=== PATIENT | female | born 1950 | race Caucasian/White ===

== ENCOUNTER 2017-09-19 08:40 | Day surgery (SDC) | payer MEDICARE, BC ==
[~2017-09-19 08:40] MED LIST: Lactated Ringers 1,000 ML IV SCH; Midazolam 1 MG/ML 2 ML SDV ONE; Propofol 200 MG/20 ML SDV ONE; Sodium Chloride 0.9% 10 ML Syringe FLUSH PRN; Sodium Chloride 0.9% 2.5 ML Syringe FLUSH PRN; fentaNYL 100 MCG/2 ML SDV ONE
--- NOTE | 2017-09-19 09:26 | PCM.PREANE ---
Preanesthetic Assessment - Anesthesia/Transfusion/Family Hx Anesthesia History: Prior Anesthesia Reaction Other Type of Anesthesia Reaction Comment: motion sickness feeling after hysterectomy Family History of Anesthesia Reaction: No Transfusion History: No Prior Transfusion(s) Intubation History: Unknown - Review of Systems General: No Symptoms Pulmonary: No Symptoms Cardiovascular: No Symptoms Gastrointestinal: No Symptoms, Other (color guard test positive) Neurological: No Symptoms Other: Reports: None - Physical Assessment Height: 1.6 m Weight: 75.296 kg ASA Class: 2 Mental Status: Alert & Oriented x3 Airway Class: Mallampati = 2 Dentition: Reports: Normal Dentition Thyro-Mental Finger Breadths: 3 Mouth Opening Finger Breadths: 2 ROM/Head Extension: Full Lungs: Clear to Auscultation, Normal Respiratory Effort Cardiovascular: Regular Rate, Regular Rhythm - Allergies Allergies/Adverse Reactions: Allergies Allergy/AdvReac Type Severity Reaction Status Date / Time No Known Allergies Allergy Verified 09/16/17 11:17 - Blood Blood Available: No - Anesthesia Plan Pre-Op Medication Ordered: None - Acknowledgements Anesthesia Type Planned: MAC Pt an Appropriate Candidate for the Planned Anesthesia: Yes Alternatives and Risks of Anesthesia Discussed w Pt/Guardian: Yes Pt/Guardian Understands and Agrees with Anesthesia Plan: Yes PreAnesthesia Questionnaire HEENT History: Reports: Allergic Rhinitis, Cataract Cardiovascular History: Reports: Blood Clots/VTE/DVT Other Cardiovascular History: had DVT in left leg during first (1970) , 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: Musculoskeletal History: Reports: Other (See Below) Other Musculoskeletal History: osteopenia Neurological History: Reports: Migraines - Past Surgical History HEENT Surgical History: Reports: Cataract Surgery GI Surgical History: Reports: Appendectomy Female Surgical History: Reports: Hysterectomy, Salpingo-Oophorectomy - SUBSTANCE USE Smoking Status *Q: Former Smoker Recreational Drug Use History: No - HOME MEDS Home Medications: Home Meds Alendronate Sodium 70 mg PO WEEKLY 09/16/17 [History] Calcium Citrate/Vitamin D3 [Calcium Citrate - Vit D Caplet] 1 cap PO BID [History] Fluticasone Propionate [Flonase Allergy Relief] 1 - 2 spray NASBOTH DAILY [History] - CURRENT (IN HOUSE) MEDS Current Meds: Current Medications Lactated Ringer's (Ringers, Lactated) 1,000 mls @ 125 mls/hr IV ASDIRECTED IRVIN Sodium Chloride (Saline Flush) 10 ml FLUSH ASDIRECTED PRN PRN Reason: Keep Vein Open Sodium Chloride (Saline Flush) 2.5 ml FLUSH ASDIRECTED PRN PRN Reason: Keep Vein Open Sodium Chloride (Saline Flush) 10 ml FLUSH ASDIRECTED PRN PRN Reason: Keep Vein Open Sodium Chloride (Saline Flush) 2.5 ml FLUSH ASDIRECTED PRN PRN Reason: Keep Vein Open Discontinued Medications Fentanyl (Sublimaze) Confirm Administered Dose 100 mcg .ROUTE .STK-MED ONE Stop: 09/19/17 08:07 Midazolam HCl (Versed 1 Mg/Ml) Confirm Administered Dose 2 mg .ROUTE .STK-MED ONE Stop: 09/19/17 08:07 Propofol (Diprivan 20 Ml) Confirm Administered Dose 200 mg .ROUTE .STK-MED ONE Stop: 09/19/17 08:07
[2017-09-19] MEDS ORDERED: Glycopyrrolate 0.2 MG/ML SDV ONE (09:43)
[2017-09-19] MEDS ORDERED: Propofol 200 MG/20 ML SDV ONE (10:00)
--- NOTE | 2017-09-19 11:08 | PCM.OPNOTE ---
- General Post-Op/Procedure Note Date of Surgery/Procedure: 09/19/17 Operative Procedure(s): Diagnostic colonoscopy Findings: Large irregular mass in proximal ascending colon and hepatic flexure. Transverse (x1), descending (x1), sigmoid (x 3) polyp Pre Op Diagnosis: Positive cologuard test Post-Op Diagnosis: Ascending colon mass, hepatic flexure mass, transverse colon polyp, descending colon polyp, sigmoid colon polyp x 3 Anesthesia Technique: [facility] [place] Primary Surgeon: Madeline Jason Condition: Good Free Text/Narrative:: Intake & Output 09/18/17 09/19/17 09/19/17 22:59 06:59 14:59 Intake Total 1000 Balance 1000
--- NOTE | 2017-09-19 11:31 | PCM48HPAN ---
Post Anesthesia Note - EVALUATION WITHIN 48HRS OF ANESTHETIC Vital Signs in Normal Range: Yes Patient Participated in Evaluation: Yes Respiratory Function Stable: Yes Airway Patent: Yes Cardiovascular Function Stable: Yes Hydration Status Stable: Yes Pain Control Satisfactory: Yes Nausea and Vomiting Control Satisfactory: Yes Mental Status Recovered: Yes Resp Rate: 15 - COMMENTS/OBSERVATIONS Free Text/Narrative:: no anesthesia problems
--- NOTE | 2017-09-19 20:06 | OR ---
SURGEON: HERNANDEZ DAVIS MD DATE OF PROCEDURE: 09/19/2017 PREOPERATIVE DIAGNOSIS: Positive Cologuard test. POSTOPERATIVE DIAGNOSES: 1. Grade 2 hemorrhoids. 2. Diverticulosis. 3. Ascending colon mass. 4. Hepatic flexure mass. 5. Transverse colon polyp. 6. Descending colon polyp. 7. Sigmoid colon polyp x3. PROCEDURE PERFORMED: Diagnostic colonoscopy. ANESTHESIA: MAC. INSTRUMENT USED: Olympus colonoscope. EXTENT OF EXAM: To the cecum. PREPARATION: Good. LIMITATIONS: None. INDICATION FOR EXAMINATION: The patient is a 67-year-old female, who presents to my clinic with positive Cologuard test. We discussed the need for diagnostic colonoscopy. We discussed the procedure, expected perioperative course, and risks including bleeding, infection, or damage to surrounding structures including perforation. The patient verbalized understanding and wishes to proceed. PROCEDURE IN DETAIL: The patient was brought to the endoscopy suite and placed in a left lateral decubitus position. A time-out was completed verifying the patient's name, age, date of , allergies, and procedure to be performed. Monitored anesthesia care was induced and continuous oxygen was provided via nasal cannula throughout the procedure. After adequate sedation was achieved, a digital rectal exam was performed. This exam revealed reducible enlarged hemorrhoids consistent with grade 3 hemorrhoids. A well lubricated colonoscope was inserted in the rectum and advanced under direct visualization to the level of the cecum. I had some difficulty, given that I encountered a large mass at the hepatic flexure of the colon. It encompassed about half of the circumference of the colon at this spot. It made it somewhat difficult for me to make the turn to drop down in the cecum, however, I was able to do so. The cecum was identified by both visual and anatomic landmarks. A photograph was taken of the cecal cap. I was unable to retroflex the scope, given some looping of my scope more proximally. The scope was then fully withdrawn while examining the color, texture, anatomy, and integrity of the mucosa from the cecum to the anal canal. Just above the cecal cap, the patient was noted to have another irregular appearing mass that seemed to encompass 1/3 to half of the lumen size. Photograph was taken. Multiple biopsies were taken of this mass. The scope was then brought up to the hepatic flexure. Multiple biopsies were taken of the hepatic flexure mass, which had a similar appearance to the mass in the ascending colon, but was larger. I injected some mucosal ink along the mass during any further scopes for identification later on. In the proximal transverse colon, the patient was found to have a 2 to 3 mm polyp. This was removed using a cold biopsy forceps. I found similar appearing polyps in the proximal descending colon and three of them scattered along the sigmoid colon. These were all removed in a similar fashion and sent labeled according to location. The scope was then brought into the rectum and retroflexed to allow visualization of the anal canal opening. This appeared normal and a photograph was taken. The patient was noted to have some diverticulosis within the sigmoid colon as well. The scope was then removed from the patient. The cecum to anus time was greater than 20 minutes. The patient was transferred to PACU in stable condition. ENDOSCOPIC DIAGNOSES: 1. Grade 2 hemorrhoids. 2. Diverticulosis. 3. Ascending colon mass. 4. Hepatic flexure mass. 5. Transverse colon polyp. 6. Descending colon polyp. 7. Sigmoid colon polyp x3. RECOMMENDATIONS: I visited with the patient and her after the procedure. I showed them pictures of the masses and explained to them that this is concerning for possible malignancy. A CBC, CMP, and CEA were all drawn and found to be within normal limits. I will call the patient with the results of her biopsy and we will make further decisions regarding treatment from there. THOM BRANDON /[id number]
== END 2017-09-19 11:15 | disposition home or self-care (01) ==
LOC: MW.SDS 08:40
PROVIDERS: ATTEND Surgery
DX: R19.5 Other fecal abnormalities (principal); K64.1 Second degree hemorrhoids; K57.30 Diverticulosis of large intestine without perforation or abscess without bleeding; D12.0 Benign neoplasm of cecum; D12.3 Benign neoplasm of transverse colon; D12.4 Benign neoplasm of descending colon; D12.5 Benign neoplasm of sigmoid colon; K63.5 Polyp of colon; H18.50 Unspecified hereditary corneal dystrophies; G43.009 Migraine without aura, not intractable, without status migrainosus; M85.80 Other specified disorders of bone density and structure, unspecified site; Q38.5 Congenital malformations of palate, not elsewhere classified; F45.8 Other somatoform disorders; Z79.899 Other long term (current) drug therapy; Z87.891 Personal history of nicotine dependence
CPT/HCPCS: 36415; 45380; 80053; 82378; 85027; J2250; J3010; J7120; J2704

== ENCOUNTER 2021-01-31 06:57 | Day surgery (SDC) | payer MEDICARE, BC ==
[~2021-01-31 06:57] MED LIST changes: -Midazolam 1 MG/ML 2 ML SDV ONE; -Propofol 200 MG/20 ML SDV ONE; +Sodium Chloride 0.9% 20 ML SDV IV PRN; -fentaNYL 100 MCG/2 ML SDV ONE
--- NOTE | 2021-01-31 07:43 | PCM.PREANE ---
Preanesthetic Assessment - Anesthesia/Transfusion/Family Hx Anesthesia History: Prior Anesthesia Without Reaction Other Type of Anesthesia Reaction Comment: motion sickness feeling after hysterectomy Transfusion History: No Prior Transfusion(s) Intubation History: Unknown - Review of Systems General: No Symptoms Pulmonary: No Symptoms Cardiovascular: No Symptoms Gastrointestinal: No Symptoms Neurological: No Symptoms Other: Reports: None - Physical Assessment NPO Status Date: 01/31/21 Vital Signs: Last Vital Signs Temp 98.2 F 01/31/21 07:15 Pulse 108 H 01/31/21 07:15 Resp 16 01/31/21 07:15 BP 139/79 01/31/21 07:15 Pulse Ox 97 01/31/21 07:15 Height: 5 ft 2 in Weight: 161 lb Mental Status: Alert & Oriented x3 Dentition: Reports: Normal Dentition Thyro-Mental Finger Breadths: 3 Mouth Opening Finger Breadths: 3 ROM/Head Extension: Full Lungs: Clear to Auscultation, Normal Respiratory Effort Cardiovascular: Regular Rate, Regular Rhythm - Allergies Allergies/Adverse Reactions: Allergies Allergy/AdvReac Type Severity Reaction Status Date / Time No Known Allergies Allergy Verified 01/26/21 08:05 - Acknowledgements Anesthesia Type Planned: General Anesthesia Pt an Appropriate Candidate for the Planned Anesthesia: Yes Alternatives and Risks of Anesthesia Discussed w Pt/Guardian: Yes Pt/Guardian Understands and Agrees with Anesthesia Plan: Yes PreAnesthesia Questionnaire HEENT History: Reports: Allergic Rhinitis, Cataract, Other (See Below) Other HEENT History: wears glasses Cardiovascular History: Reports: Blood Clots/VTE/DVT Other Cardiovascular History: had DVT in left leg during first (1970), took heparin Respiratory History: Reports: None Gastrointestinal History: Reports: Colon Polyp Genitourinary History: Reports: 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: Musculoskeletal History: Reports: Other (See Below) Other Musculoskeletal History: osteopenia Neurological History: Reports: Migraines Psychiatric History: Reports: None Endocrine/Metabolic History: Reports: None Hematologic History: Reports: None Immunologic History: Reports: None Oncologic (Cancer) History: Reports: None Dermatologic History: Reports: None - Past Surgical History Head Surgeries/Procedures: Reports: None HEENT Surgical History: Reports: Cataract Surgery Cardiovascular Surgical History: Reports: None Respiratory Surgical History: Reports: None GI Surgical History: Reports: Appendectomy, Colon, Colonoscopy Other GI Surgeries/Procedures: robotic assisted right hemicolectomy Female Surgical History: Reports: Hysterectomy, Salpingo-Oophorectomy Endocrine Surgical History: Reports: None Neurological Surgical History: Reports: None Musculoskeletal Surgical History: Reports: None Oncologic Surgical History: Reports: None Dermatological Surgical History: Reports: None - SUBSTANCE USE Tobacco Use Status *Q: Never Tobacco User - HOME MEDS Home Medications: Home Meds Fluticasone Propionate [Flonase Allergy Relief] 1 - 2 spray NASBOTH DAILY PRN 09/16/17 [History] ZOLMitriptan [Zomig] 0.25 tab PO ASDIRECTED PRN 01/26/21 [History] - CURRENT (IN HOUSE) MEDS Current Meds: Current Medications Lactated Ringer's (Ringers, Lactated) 1,000 mls @ 125 mls/hr IV ASDIRECTED IRVIN Last Admin: 01/31/21 07:35 Dose: 125 mls/hr Documented by: Sodium Chloride (Sodium Chloride 0.9% 10 Ml Syringe) 10 ml FLUSH ASDIRECTED PRN PRN Reason: Keep Vein Open Sodium Chloride (Sodium Chloride 0.9% 2.5 Ml Syringe) 2.5 ml FLUSH ASDIRECTED PRN PRN Reason: Keep Vein Open Sodium Chloride (Sodium Chloride 0.9% 10 Ml Syringe) 10 ml FLUSH ASDIRECTED PRN PRN Reason: Keep Vein Open Sodium Chloride (Sodium Chloride 0.9% 2.5 Ml Syringe) 2.5 ml FLUSH ASDIRECTED PRN PRN Reason: Keep Vein Open Sodium Chloride (Sodium Chloride 0.9% 20 Ml Sdv) 10 ml IV ASDIRECTED PRN PRN Reason: IV Use
[2021-01-31] MEDS ORDERED: Propofol 200 MG/20 ML SDV ONE (08:46)
[2021-01-31] MEDS ORDERED: fentaNYL 100 MCG/2 ML SDV ONE (09:20)
--- NOTE | 2021-01-31 09:43 | PCM.POSTAN ---
POST ANESTHESIA ASSESSMENT - MENTAL STATUS Mental Status: Alert, Oriented - VITAL SIGNS Vital Signs: Last Vital Signs Temp 99.7 F 01/31/21 09:35 Pulse 82 01/31/21 09:41 Resp 12 01/31/21 09:41 BP 111/80 01/31/21 09:41 Pulse Ox 95 01/31/21 09:41 - RESPIRATORY Respiratory Status: Respiratory Rate WNL - CARDIOVASCULAR CV Status: Pulse Rate WNL - GASTROINTESTINAL GI Status: No Symptoms - PAIN Pain Score: 0 - POST OP HYDRATION Hydration Status: Adequate & Stable
--- NOTE | 2021-01-31 09:44 | PCM48HPAN ---
Post Anesthesia Note - EVALUATION WITHIN 48HRS OF ANESTHETIC Vital Signs in Normal Range: Yes Patient Participated in Evaluation: Yes Respiratory Function Stable: Yes Airway Patent: Yes Cardiovascular Function Stable: Yes Hydration Status Stable: Yes Pain Control Satisfactory: Yes Nausea and Vomiting Control Satisfactory: Yes Mental Status Recovered: Yes Vital Signs: Last Vital Signs Temp 99.7 F 01/31/21 09:35 Pulse 82 01/31/21 09:41 Resp 12 01/31/21 09:41 BP 111/80 01/31/21 09:41 Pulse Ox 95 01/31/21 09:41
--- NOTE | 2021-01-31 09:46 | PCM.OPNOTE ---
- General Post-Op/Procedure Note Date of Surgery/Procedure: 01/31/21 Operative Procedure(s): Screening colonoscopy Findings: Diverticulosis, sigmoid colon polyp Pre Op Diagnosis: History of colon polyps Post-Op Diagnosis: Diverticulosis, sigmoid colon polyp Anesthesia Technique: ALISSON Primary Surgeon: Madeline Jason Condition: Good
--- NOTE | 2021-02-01 23:35 | OR ---
SURGEON: MADELINE JASON MD DATE OF PROCEDURE: 01/31/2021 PREOPERATIVE DIAGNOSIS: History of colon polyps. POSTOPERATIVE DIAGNOSES: 1. Sigmoid colon polyp. 2. Diverticulosis. PROCEDURE PERFORMED: Screening colonoscopy with polypectomy. PRIMARY SURGEON: Madeline Jason MD ANESTHESIA: MAC. INSTRUMENT USED: Olympus colonoscope. EXTENT OF THE EXAM: To the cecum. PREPARATION: Good. LIMITATIONS: None. INDICATIONS FOR EXAMINATION: The patient is a 70-year-old female who presents with a history of colon polyps. She is due for a repeat screening colonoscopy. I explained the procedure, expected perioperative course, and the risks. She verbalized understanding and wishes to proceed. PROCEDURE IN DETAIL: The patient was brought to the endoscopy suite and placed in the left lateral decubitus position. A time-out was completed verifying the patient's name, age, date of , allergies, and procedure to be performed. Monitored anesthesia care was induced and continuous oxygen was provided via face mask throughout the procedure. After adequate sedation was achieved, a digital rectal exam was performed. This exam was within normal limits. A well-lubricated colonoscope was inserted into the rectum and advanced under direct visualization to the level of the cecum. The cecum was identified by both visual and anatomic landmarks. A photograph was taken. The scope was then fully withdrawn while examining the color, texture, anatomy, integrity of the mucosa from the cecum to the anal canal. The patient was noted to have diverticulosis in the sigmoid colon. She also had a small sessile polyp in the sigmoid colon, which was removed in piecemeal fashion using a cold biopsy forceps. The scope was then brought into the rectum and retroflexed to allow visualization of the anal canal opening. This appeared normal and a photograph was taken. The scope was then straightened out and fully withdrawn. The cecum to anus time was 14 minutes. The patient tolerated the procedure well and was transferred to the PACU in stable condition. ENDOSCOPIC DIAGNOSES: 1. Sigmoid colon polyp. 2. Diverticulosis. RECOMMENDATIONS: Follow up in clinic in 2 weeks. THOM BRANDON /[id number]
== END 2021-01-31 10:20 | disposition home or self-care (01) ==
LOC: MW.SDS 06:57
PROVIDERS: ATTEND Surgery
DX: K63.5 Polyp of colon (principal); K57.30 Diverticulosis of large intestine without perforation or abscess without bleeding; G43.009 Migraine without aura, not intractable, without status migrainosus; M85.80 Other specified disorders of bone density and structure, unspecified site; Z79.899 Other long term (current) drug therapy; Z90.49 Acquired absence of other specified parts of digestive tract; Z98.890 Other specified postprocedural states
CPT/HCPCS: 45380; J2704; J3010; J7120; 00811; 99100

== ENCOUNTER 2021-08-06 16:07 | Emergency (ER) | payer MEDICARE, BC ==
[2021-08-06] MEDS ORDERED: Ketorolac 30 MG/ML SDV IVPUSH ONE (16:20)
[2021-08-06] MEDS ORDERED: Sodium Chloride 0.9% 1,000 ML IV ONE (16:20)
[2021-08-06] MEDS ORDERED: Ondansetron 4 MG/2 ML SDV IVPUSH ONE (16:20)
[2021-08-06 17:11] LABS: CARBON DIOXIDE,CO2 25.9 mmol/L (21.0-32.0); POTASSIUM,K 3.6 mmol/L (3.5-5.1)
[2021-08-06] MEDS ORDERED: Ondansetron 4 MG Tab.DIS PO ONE (18:20)
[2021-08-06] MEDS ORDERED: Acetaminophen/HYDROcodone 325-5 MG Tab PO ONE (18:20)
[2021-08-06] MEDS ORDERED: Tamsulosin 0.4 MG Cap.ER PO ONE (18:20)
== END 2021-08-06 18:54 | disposition home or self-care (01) ==
LOC: MW.ED 16:07
DX: N20.0 Calculus of kidney (principal); Z90.49 Acquired absence of other specified parts of digestive tract; Z90.710 Acquired absence of both cervix and uterus; Z79.899 Other long term (current) drug therapy
CPT/HCPCS: 36415; 74176; 80053; 81001; 83690; 85025; 87086; 96361; 96374; 96375; 99284; A9270; J1885; J2405; J7030